=== PATIENT | female | born 1980 | race Two or more races ===

== ENCOUNTER 2023-02-26 16:12 | Emergency (ER) | payer BC, MEDICAID ==
[~2023-02-26] VITALS: Ht 154.9 cm; Wt 76.2 kg
[2023-02-26 16:52] VITALS: BP 127/95; PULSE 83; RESP 18; TEMP 97; O2SAT 98
== END 2023-02-26 17:29 | disposition home or self-care (01) ==
LOC: ER 16:12
DX: R03.0 Elevated blood-pressure reading, without diagnosis of hypertension (principal); H60.92 Unspecified otitis externa, left ear

== ENCOUNTER 2023-03-21 18:47 | Emergency (ER) | payer BC, MEDICAID ==
[~2023-03-21] VITALS: Ht 165.1 cm; Wt 78.3 kg
[2023-03-21] MEDS ORDERED: CYCL-837 PO (23:25)
[2023-03-21 23:27] VITALS: BP 141/88; PULSE 79; RESP 18; TEMP 97.7; O2SAT 97
== END 2023-03-21 23:36 | disposition home or self-care (01) ==
LOC: ER 18:47
DX: R07.89 Other chest pain (principal); M25.532 Pain in left wrist; Z79.899 Other long term (current) drug therapy; V98.8XXA Other specified transport accidents, initial encounter; Y93.I9 Activity, other involving external motion; Y92.89 Other specified places as the place of occurrence of the external cause; Y99.8 Other external cause status

== ENCOUNTER 2023-08-17 01:00 | Emergency (ER) | payer BC, MEDICAID ==
[~2023-08-17] VITALS: Ht 165.1 cm; Wt 81.4 kg
[~2023-08-17 01:00] MED LIST: CYCL-837 PO
[2023-08-17] MEDS ORDERED: IBUP-1456 PO (01:22)
[2023-08-17] MEDS ORDERED: CIPR1SUS8 OT ×2 (01:22→01:27)
[2023-08-17] MEDS: KETOROLAC TROMETH 60MG/2ML VIAL IM ONE (02:08)
[2023-08-17] MEDS: cefTRIAXone SOD 1,000 MG VL IM ONE (02:09)
[2023-08-17 02:50] VITALS: BP 139/87; PULSE 99; RESP 20; TEMP 98.1; O2SAT 96
== END 2023-08-17 03:08 | disposition home or self-care (01) ==
LOC: ER 01:00
DX: H60.91 Unspecified otitis externa, right ear (principal); Z79.1 Long term (current) use of non-steroidal anti-inflammatories (NSAID); Z79.899 Other long term (current) drug therapy
CPT/HCPCS: 96372; 99284; J0696; J1885